=== PATIENT | male | born 1990 | race African-American/Black ===

== ENCOUNTER 2019-09-18 14:45 | Inpatient (IN) | payer OTHER, SELFPAY ==
[2019-09-18 15:22] VITALS: BP 140/64; PULSE 80; RESP 18; TEMP 36.8; O2SAT 98
--- NOTE | 2019-09-18 15:57 | ADMGEN ---
This patient, Donavan Worley, was admitted to Medical Room 347-01. Patient/family oriented to hospital policies and general routines including ID bracelet, bed and alarms, visiting hours, pain management, procedures, bathroom and other care routines, personal items, smoking policy, room service/diet, and visiting hours. Valuables list has been completed. Information on how to activate the Rapid Response Team has been discussed. Patient/Family are encouraged to report perceived risks to care and to ask questions if they do not understand what they are told or what they should do. Patient unable to give answers for admission questions.
--- NOTE | 2019-09-18 17:00 | PM.IMHP ---
H&P: HPI History of Present Illness Chief complaint: Breakthrough seizures. Narrative: Donavan Worley is a 28-year-old male with history of seizures who is being directly admitted to the hospitalist service from the emergency department at [facility] for further treatment and evaluation of recurrent seizures. At the time my evaluation, he is alert but due to underlying intellectual disability, he is not the greatest historian. As such his parents provide much of the following information. Donavan was diagnosed with epilepsy at age 11 and was on Dilantin and Topamax for many years. Sometime in July he began having an increase in the number of seizures, and he was seen in the emergency department at [facility] several times. It sounds as though he was started on valproate sodium and he seemed to be doing well with that drug, however they were unable to get a refill as it was prescribed by an ER physician. Parents attempted to make an appointment with him to see a neurologist, but were unsuccessful. After being off all medication for approximately 1.5 weeks, he once again started having more and more seizures. He was hospitalized at [facility] and was started on Keppra at that time. Mother is concerned that the Keppra is making him ?like a zombie? and he is just not like himself. She is responsible for giving him his medications daily, and states that he has not missed any doses. In any event, he had 2 seizures this morning at home, described as tonic clonic seizures, prompting the trip to the emergency department. He had another witnessed seizure while in the emergency department for which he was given 2 milligrams of Ativan. He was also loaded with 1 gram of Keppra and is being transferred here for consultation with Dr. Cunningham, who is his neurologist. At the time my evaluation he is awake and alert. He has no complaints and specifically denies headache, fever, chills, cold and flu symptoms, chest pain, shortness breath, nausea, vomiting, and body aches. Review of Systems Review of Systems: ROS unobtainable: unobtainable due to mental status (Review of systems is limited due to underlying intellectual disability.) [facility] Past Medical History Medical History (Updated 09/18/19 @ 18:18 by Keshia Gauthier PA-C) Epilepsy Intellectual disability Surgical History Surgical History (Updated 09/18/19 @ 18:14 by Keshia Gauthier PA-C) No history of previous surgery Family History Family History Grandparent Seizures Father Seizures Social History Social History (Updated 09/18/19 @ 18:16 by Keshia Gauthier PA-C) Social History: The patient lives in [place], [place] with his parents. He is on disability. He is usually very active, and likes to go for walks around the neighborhood and collect cans to turn in for money. He is able to ambulate unassisted. He needs reminders to bathe and change clothing, according to mom. His mother, Nathaly Knapp, and father, rafal Worley, are his surrogate decision makers. He is a full code. No alcohol, tobacco, or drug use. Additional smoking assessment comments: Spiritual care concerns: No Agree to blood products: Yes Meds Home Medications and Allergies Home Medications Medication Instructions Recorded Confirmed Type levetiracetam 500 mg PO BID 09/18/19 09/18/19 History Allergies Allergy/AdvReac Type Severity Reaction Status Date / Time No Known Allergies Allergy Verified 09/18/19 17:07 Exam Narrative: Exam Narrative: General: A well-developed, well-nourished male supine in bed in no acute distress. HEENT: Normocephalic, atraumatic. PERRL, EOMI. Sclerae anicteric. He did not open his mouth for exam. Neck: Supple. Respiratory: Lungs are clear to auscultation bilaterally. Cardiovascular: Regular rate and rhythm with S1-S2. Gastrointestinal: Abdomen is sof
[2019-09-18 17:14] VITALS: BMI 26.6
[2019-09-18] MEDS: levETIRAcetam 500 MG TABLET PO (18:45)
[2019-09-18 20:00] VITALS: PULSE 98; RESP 16; O2SAT 98
[2019-09-18 22:00] VITALS: BP 126/80; PULSE 98; RESP 16; TEMP 36.5; O2SAT 98
[2019-09-19 06:00] VITALS: BP 130/64; PULSE 90; RESP 18; TEMP 36.6; O2SAT 98
--- NOTE | 2019-09-19 08:00 | NEURO_ITS ---
TEST: ELECTROENCEPHALOGRAM DIAGNOSIS: SEIZURES PATIENT NUMBER: [id number] EEG NUMBER: [id number] RECORDING DATE: 09/19/19 CONDITION OF RECORDING: Awake and drowsy EEG DESCRIPTION: There are very minimal low voltage 9-11hz posterior dominant rhythms noted. Low voltage beta is seen in the range of 15-21hz during drowsiness mixed with intermittent 3-4hz delta activity. Bilateral symmetrical sleep activity is seen during sleep. Nonparoxysmal. Nonfocal. Nonlateralizing. IMPRESSION: No significant abnormalities noted except excessive amount of theta and delta activity. Clinical correlation recommended. These findings could be suggestive of underlying organic or metabolic encephalopathy or the post ictal state. MTDD
[2019-09-19 08:04] LABS: Basophils Percent Auto 1.1 % (0.2-1.2); Eosinophils Percent Auto 0.8 % (0-4.4); Hematocrit 41.3 % (42.0-52.0); Hemoglobin 13.9 g/dL (14.0-18.0); Immature Granulocyte Absolute 0.03 K/mm3 (0.00-0.031); Immature Granulocyte Percent A 0.8 % (0-0.5); Lymphocytes Absolute Auto 0.93 K/mm3 (0.9-3.2); Lymphocytes Percent Auto 24.9 % (18.3-44.2); Mean Corpuscular HGB Conc 33.7 g/dl (32-36); Mean Corpuscular Volume 95.2 fl (80-100); Mean Platelet Volume 11.1 fl (7.4-10.4); Monocytes Absolute Auto 0.5 K/mm3 (0.1-0.6); Monocytes Percent Auto 13.1 % (2.6-8.5); Neutrophils Absolute Auto 2.2 K/mm3 (1.3-6.7); Neutrophils Percent Auto 59.3 % (45.5-73.1); Platelet Count Result 227 k/mm3 (150-375); Red Blood Count 4.34 M/mm3 (4.6-6.20); Red Cell Distribution Width 12.5 % (11.5-14.5); White Blood Count 3.7 K/mm3 (4.5-10.0)
[2019-09-19 08:21] LABS: Blood Urea Nitrogen 9 mg/dL (9-20); Calcium 8.5 mg/dL (8.4-10.2); Carbon Dioxide 22 mmol/L (22-30); Chloride 104 mmol/L (98-107); Estimated CRCL calculation 106 ml/min; Estimated Glomerular Filt Rate > 60; Glucose 75 mg/dL (75-110); Potassium 3.7 mmol/L (3.4-5.0); Sodium 140 mmol/L (137-145)
[2019-09-19 08:36] VITALS: PULSE 94; RESP 16; O2SAT 98
[2019-09-19] MEDS: levETIRAcetam 500 MG TABLET PO ×2 (08:36→17:03)
--- NOTE | 2019-09-19 12:30 | CONS_ITS ---
DATE OF CONSULTATION: HISTORY OF PRESENT ILLNESS: A 28 years old right-handed male has been admitted to [facility] on direct transfer from the [facility] for the complaints of recurrent seizures. The patient carries a diagnosis of epilepsy since the age of 11 years and had been on Dilantin and Topamax for several years. In July 2019, he began having increased number of the seizures and was seen in the emergency room at [facility] several times and probably it was started on valproate and was doing fairly well; however, they were unable to get a refill as it was prescribed by the emergency room physician. He attempted to make an appointment with the physician subsequently after being off all the medication for 1-1/2 weeks. He once again started having more and more seizure. He was hospitalized at [place] and was started on Keppra, but the Keppra is making him like a zombie and he is just not like himself. She is responsible for giving his medication daily and said he has not missed any dose. In any event, he had 2 seizures this morning at home, which were tonic-clonic seizure prompting trip to the Emergency Department, from there he was transferred here after getting the 2 mg of Ativan. He was loaded with 1 g of Keppra and is being transferred for consultation by the neurologist, and at the time of initial evaluation, he is awake, alert, and cooperative. The patient carries the diagnosis of intellectual disability with epilepsy. No history of previous surgeries. He lives in [place] and usually very active. MEDICATIONS: His present medications include the Keppra 500 mg p.o. b.i.d. ALLERGIES: HE HAS NO HISTORY OF BEING ALLERGIC TO ANY MEDICATION. PHYSICAL EXAMINATION: GENERAL: On examination today, he was awake, alert, cooperative, in no obvious acute distress. HEENT: Head was normocephalic with no cranial bruit. Ear, nose, throat examination was normal. NECK: Supple with no cervical bruit. No thyromegaly. No lymphadenopathy. HEART: Regular with no murmur. LUNGS: Clear to auscultation. ABDOMEN: Soft with no organomegaly. NEUROLOGICAL: He was awake, alert, was able to follow all the verbal commands appropriately. Pupils round and regular. Smith of vision full. Extraocular movements full. Face symmetrical. Tongue midline. Motor examination revealed him to have no drift of 1 side or other side. Tone was normal. Reflexes were symmetrical and 1+. Plantars are downgoing. There was no evidence of sensory or cerebellar deficit. After talking to mother, we called the old record and found that he was taking the Topamax 200 mg daily. In addition, Dilantin 100 mg 3 times a day, but I would like to put him on the drip Briviact, which medicine is not available in the pharmacy, but they will get from the [facility] and that will be the substitute of Keppra. In the meantime, he will stay on the medication as such. MARK HIGHTOWER M.D. [employer] S[employer] MAKER VENEER SAMPLE MAKER D Rupert MT: Cora
[2019-09-19 14:00] VITALS: BP 112/60; PULSE 94; RESP 18; TEMP 36.3; O2SAT 100
[2019-09-19] MEDS: ACETAMINOPHEN 325 MG TABLET 650 MG PO (14:06)
--- NOTE | 2019-09-19 16:13 | PM.IMPN ---
Progress Note: A&P Assessment and Plan (1) Breakthrough seizure: Code(s): G40.919 - Epilepsy, unspecified, intractable, without status epilepticus Status: Acute Assessment and Plan: Patient's mother feels that the patient is not tolerating Keppra very well and has been ?like a zombie? since he started that drug. Dr Cunningham has started him on Briviact, nonformulary and pharmacy has obtained samples from Dr Cunningham's office. Dr Cunningham has noted that he will give the patient samples from his office and will instruct the patient's mother to come to his office tomorrow after the patient has been discharged to get more Briviact samples. Received Briviact this evening and will stop Keppra tomorrow per Dr Cunningham's recommendations. Ativan available as needed for seizures. Initiate seizure precautions. (2) Epilepsy: Code(s): G40.909 - Epilepsy, unspecified, not intractable, without status epilepticus Status: Acute Assessment and Plan: Plan as detailed above. Records requested from recent stay at [facility], including EEG. Subjective Date/time seen: 09/19/19 1400 Interval history: Mr. Worley is a 28yo M with epilepsy and intellectual disability here for increased frequency of seizures. His mother is his main child caregiver and is not in the room at time of my exam. The patient reports feeling well and offers no complaints. He denies headaches, chest pain, shortness of breath, or dizziness. He has tolerated oral intake without nausea or vomiting. His last seizure was the seizure in the ER at outside hospital yesterday. Review of Systems Review of Systems: Narrative: Twelve systems were reviewed with pertinent positives and negatives as per HPI. Exam Narrative: Exam Narrative: General: Male resting supine in bed in no acute distress. HEENT: Normocephalic, EOMI, oral mucosa moist. Cardiovascular: Rate and rhythm are regular. Respiratory: Lungs clear to auscultation all isidro. Abdomen: Soft, non-tender, non-distended, bowel sounds present. Extremities: Peripheral pulses intact. No edema, erythema, or pain to palpation. Neuro: No focal neurological deficits. Upper extremity airline mechanic strength is appropriate and equal bilaterally. Speech is clear. Objective Data Vital Signs Vital Signs: Last Vital Signs Temp 97.4 F L 09/19/19 14:00 Pulse 94 09/19/19 14:00 Resp 18 09/19/19 14:00 BP 112/60 09/19/19 14:00 Pulse Ox 100 09/19/19 14:00 Intake/Output Intake/Output: Intake & Output 09/16/19 09/17/19 09/18/19 09/19/19 23:59 23:59 23:59 23:59 Intake Total 480 580 Output Total 800 Balance -320 580 Meds/Results Medications: Active Medications Generic Name Dose Route Start Last Admin Trade Name Freq PRN Reason Stop Dose Admin Acetaminophen 650 mg 09/19/19 13:50 09/19/19 14:06 Tylenol Tablet PO 650 mg Q4H PRN Administration Pain or Fever Levetiracetam 500 mg 09/18/19 17:00 09/19/19 08:36 Keppra Tablet PO 500 mg BID JOSE Administration Lorazepam 1 mg 09/18/19 17:15 Ativan Inj IV PUSH Q6H PRN Seizure longer than 1 minutes Nonformulary Drug ( 0 mg 09/19/19 13:56 Briviact 25 Mg) PO 10/19/19 13:55 Brivaracetam DAILY [facility] Labs Labs: Laboratory Tests 09/19/19 07:32 09/19/19 07:32 Quality VTE Prophylaxis VTE prophylaxis: mechanical ordered
[2019-09-19 21:29] VITALS: BP 123/70; PULSE 80; RESP 17; TEMP 36.3; O2SAT 98
[2019-09-20] VITALS (9 sets, daily range): BP systolic 124–148; BP diastolic 68–80; PULSE 66–97; RESP 16–18; TEMP 36.3–37.1; O2SAT 98–99
[2019-09-20 06:09] LABS: Hematocrit 42.6 % (42.0-52.0); Hemoglobin 13.8 g/dL (14.0-18.0); Mean Corpuscular HGB Conc 32.4 g/dl (32-36); Mean Corpuscular Hemoglobin 31.8 pg (26-34); Mean Corpuscular Volume 98.2 fl (80-100); Mean Platelet Volume 11.2 fl (7.4-10.4); Platelet Count Result 205 k/mm3 (150-375); Red Blood Count 4.34 M/mm3 (4.6-6.20); Red Cell Distribution Width 12.7 % (11.5-14.5); White Blood Count 4.1 K/mm3 (4.5-10.0)
[2019-09-20 06:27] LABS: Magnesium 1.9 mg/dL (1.6-2.3); Phosphorus 3.1 mg/dL (2.5-4.5)
--- NOTE | 2019-09-20 13:22 | WPDNEUROPN ---
Progress Note: A&P Assessment and Plan (1) Intractable epilepsy: Code(s): G40.919 - Epilepsy, unspecified, intractable, without status epilepticus Status: Acute Additional Plan difficulties with keppra ,switched to briviact,could not handle starting onlamictal Review of Systems Review of Systems: Narrative: having difficulties with meds All systems reviewed & are unremarkable except as noted in HPI and below Exam Const: General: cooperative, healthy appearing, comfortable and no acute distress Nutritional Appearance: well nourished Eyes: General: appearance normal, both eyes and all related structures Alignment and Position: alignment normal Periorbital: periorbital findings normal Eyelids: eyelids normal Conjunctivae: conjunctivae normal Sclera: sclerae normal Cornea: corneas normal Pupils: Equal, round and reactive pupils present EOM: EOMs intact bilaterally Resp: Auscultation: clear to auscultation bilaterally Cardio: Rate: regular rate Rhythm: regular rhythm Skin: General skin exam: no rashes or lesions noted Neuro: General: oriented to person, tone normal, moves all extremities, no focal motor deficits and CN's II-XI intact bilaterally Cranial nerves: Yes Equal, round and reactive pupils present, Yes Bilaterally intact EOM present, Yes Nystagmus not present, Yes Normal facial strength present, Yes facial symmetry, Yes Midline tongue present, Yes Normal gag reflex present, Yes Symmetric palate elevation present and Yes Ability to bilaterally rotate head present Gait exam (Neuro): Normal gait present Deep tendon reflexes (DTR's): Right triceps reflex intensity grade: 1+, Left triceps reflex intensity grade: 1+, Rt Biceps (C5, C6): 1+, Left biceps reflex intensity grade: 1+, Right brachioradialis reflex intensity grade: 1+, Left brachioradialis reflex intensity grade: 1+, Right patellar reflex intensity grade: 1+, Left patellar reflex intensity grade: 1+, Right ankle reflex intensity grade: 1+ and Left ankle reflex intensity grade: 1+ Plantar Reflex Responses: downgoing: bilateral Psych: Appearance: grossly normal Objective Data Vital Signs Vital Signs: Vital Signs - 24 hr 09/19/19 14:00 09/19/19 21:29 09/20/19 00:00 Temperature 36.3 C L 36.3 C L Pulse Rate 94 80 89 Respiratory Rate 18 17 Blood Pressure 112/60 123/70 Pulse Oximetry 100 98 09/20/19 04:00 09/20/19 06:00 Temperature 36.3 C L Pulse Rate 97 81 Respiratory Rate 16 Blood Pressure 148/80 H Pulse Oximetry 99 Intake/Output Intake/Output: Intake & Output 09/17/19 09/18/19 09/19/19 09/20/19 23:59 23:59 23:59 23:59 Intake Total 480 1300 930 Output Total 800 Balance -320 1300 930 Meds/Results Medications: Active Medications Generic Name Dose Route Start Last Admin Trade Name Freq PRN Reason Stop Dose Admin Acetaminophen 650 mg 09/19/19 13:50 09/19/19 14:06 Tylenol Tablet PO 650 mg Q4H PRN Administration Pain or Fever Lamotrigine 100 mg 09/20/19 21:00 Lamictal PO Q12HR JOSE Lorazepam 1 mg 09/18/19 17:15 Ativan Inj IV PUSH Q6H PRN Seizure longer than 1 minutes Labs Labs: Laboratory Results - last 24 hr 09/20/19 09/20/19 05:14 05:14 WBC 4.1 L RBC 4.34 L Hgb 13.8 L Hct 42.6 MCV 98.2 MCH 31.8 MCHC 32.4 RDW 12.7 Plt Count 205 MPV 11.2 H Phosphorus 3.1 Magnesium 1.9 Quality VTE Prophylaxis VTE prophylaxis: mechanical ordered
--- NOTE | 2019-09-20 16:04 | PM.IMPN ---
Progress Note: A&P Assessment and Plan (1) Breakthrough seizure: Code(s): G40.919 - Epilepsy, unspecified, intractable, without status epilepticus Status: Acute Assessment and Plan: Patient's mother feels that the patient is not tolerating Keppra very well and has been ?like a zombie? since he started that drug weeks ago. Dr Cunningham has changed him to Briviact, but after discussion with the patient's mother she feels that he is even more lethargic on the Briviact compared to Keppra. Discussed that these medications are in the same class. Discussed case with Dr Cunningham who recommends stopping Briviact and starting Lamictal today. Monitor overnight for response and he will see the patient tomorrow. Ativan available as needed for seizures. Seizure precautions. (2) Epilepsy: Code(s): G40.909 - Epilepsy, unspecified, not intractable, without status epilepticus Status: Acute Assessment and Plan: Plan as detailed above. Records requested from recent stay at [facility], including EEG. Subjective Date/time seen: 09/20/19 1145 Interval history: Mr. Worley is a 28yo M with epilepsy and intellectual disability here for increased frequency of seizures. His mother is his main dermatopathologist. She describes to me today that the patient is not acting him self, staring off into space and barely speaking, which is much different than his baseline. She feels that the new medication is making him even more zombie-like than the Keppra. Review of systems is limited based on his condition however he offers no complaints. He has had no seizures here. Review of Systems Review of Systems: Narrative: Twelve systems were reviewed with pertinent positives and negatives as per HPI. Exam Narrative: Exam Narrative: General: Male resting supine in bed in no acute distress. HEENT: Normocephalic, EOMI, oral mucosa moist. Cardiovascular: Rate and rhythm are regular. Respiratory: Lungs clear to auscultation all isidro. Abdomen: Soft, non-tender, non-distended, bowel sounds present. Extremities: Peripheral pulses intact. No edema, erythema, or pain to palpation. Neuro: No focal neurological deficits. Upper extremity burn table operator strength is appropriate and equal bilaterally. Speech is clear. Able to follow simple commands but is sleepy. Psych: Mood and affect are flat. Objective Data Vital Signs Vital Signs: Last Vital Signs Temp 98.8 F 09/20/19 14:00 Pulse 78 09/20/19 14:00 Resp 16 09/20/19 14:00 BP 136/68 09/20/19 14:00 Pulse Ox 98 09/20/19 14:00 Intake/Output Intake/Output: Intake & Output 09/17/19 09/18/19 09/19/19 09/20/19 23:59 23:59 23:59 23:59 Intake Total 480 1300 1410 Output Total 800 Balance -320 1300 1410 Meds/Results Medications: Active Medications Generic Name Dose Route Start Last Admin Trade Name Freq PRN Reason Stop Dose Admin Acetaminophen 650 mg 09/19/19 13:50 09/19/19 14:06 Tylenol Tablet PO 650 mg Q4H PRN Administration Pain or Fever Lamotrigine 100 mg 09/20/19 21:00 Lamictal PO Q12HR JOSE Lorazepam 1 mg 09/18/19 17:15 Ativan Inj IV PUSH Q6H PRN Seizure longer than 1 minutes Labs Labs: Laboratory Tests 09/20/19 05:14 09/19/19 07:32 Quality VTE Prophylaxis VTE prophylaxis: mechanical ordered
[2019-09-20] MEDS: lamoTRIgine 100 MG TABLET PO (20:47)
[2019-09-21] VITALS: PULSE 74
[2019-09-21] MEDS: ACETAMINOPHEN 325 MG TABLET 650 MG PO (02:01)
[2019-09-21 04:00] VITALS: PULSE 61
[2019-09-21 05:50] VITALS: BP 117/74; PULSE 64; RESP 18; TEMP 36.4; O2SAT 99
[2019-09-21 06:04] LABS: Basophils Percent Auto 0.8 % (0.2-1.2); Eosinophils Absolute Auto 0.1 K/mm3 (0-0.3); Eosinophils Percent Auto 2.6 % (0-4.4); Hematocrit 42.8 % (42.0-52.0); Hemoglobin 14.3 g/dL (14.0-18.0); Immature Granulocyte Absolute 0.08 K/mm3 (0.00-0.031); Immature Granulocyte Percent A 2.1 % (0-0.5); Lymphocytes Absolute Auto 0.97 K/mm3 (0.9-3.2); Lymphocytes Percent Auto 24.9 % (18.3-44.2); Mean Corpuscular HGB Conc 33.4 g/dl (32-36); Mean Corpuscular Volume 95.7 fl (80-100); Mean Platelet Volume 10.5 fl (7.4-10.4); Monocytes Absolute Auto 0.9 K/mm3 (0.1-0.6); Monocytes Percent Auto 23.4 % (2.6-8.5); Neutrophils Absolute Auto 1.8 K/mm3 (1.3-6.7); Neutrophils Percent Auto 46.2 % (45.5-73.1); Platelet Count Result 253 k/mm3 (150-375); Red Blood Count 4.47 M/mm3 (4.6-6.20); Red Cell Distribution Width 12.6 % (11.5-14.5); White Blood Count 3.9 K/mm3 (4.5-10.0)
[2019-09-21 08:00] VITALS: PULSE 56
[2019-09-21] MEDS: lamoTRIgine 100 MG TABLET PO (08:20)
--- NOTE | 2019-09-21 11:31 | PM.DS ---
DS: Diagnosis Admitting Diagnosis Admitting Diagnosis: Epilepsy, unspecified, intractable, without status epilepticus Discharge Diagnosis (1) Breakthrough seizure: Code(s): G40.919 - Epilepsy, unspecified, intractable, without status epilepticus Status: Acute Assessment and Plan: Date of Service 09/21/19 Mr. Worley is a 28yo M with epilepsy and intellectual disability who presented to [facility] ED with his mother due to increased seizure activity. He was transferred to [facility] from [facility] for neurology consult with Dr Cunningham, who he had followed with in the past. Donavan had been on topamax and dilantin for may years. Around 2 months ago, he began to have an increase in the number of seizures and presented to [facility] ED multiple times and had recently stayed at [facility]. He was started on Keppra at that time and his mother noted that he has not been acting himself since being on the Keppra, acting like a zombie . His mother is responsible for administering his medications and reports he did not miss any doses of Keppra. In the days prior to arrival, Donavan was having at least 2 seizures per day according to his mother. On the day of arrival, he had 2 seizures and then a 3rd seizure while in the ER at [facility], at which time 2mg of Ativan was given. Dr Cunningham switched him from Keppra to Briviact during this stay. After starting the Briviact, patient's mother reported he was even more lethargic than before and was not interested in him continuing on this drug. He was then switched to lamotrigine which he seemed to tolerate well and his mother noted he was a bit more interactive. He did not have any seizures while at [facility]. He was hemodynamically stable for discharge 09/21/19 with instructions to follow up with Dr Cunningham in 6 weeks. (2) Epilepsy: Code(s): G40.909 - Epilepsy, unspecified, not intractable, without status epilepticus Status: Acute Assessment and Plan: Plan as detailed above. DS: Summary Time Spent with Patient Time attestation: Total time spent providing and/or coordinating discharge services: 35 minutes. Exam Narrative: Exam Narrative: General: Male resting supine in bed in no acute distress. HEENT: Normocephalic, EOMI, oral mucosa moist. Cardiovascular: Rate and rhythm are regular. Respiratory: Lungs clear to auscultation all isidro. Abdomen: Soft, non-tender, non-distended, bowel sounds present. Extremities: Peripheral pulses intact. No edema, erythema, or pain to palpation. Neuro: No focal neurological deficits. Upper extremity airfreight operations agent strength is appropriate and equal bilaterally. Speech is clear. Able to follow simple commands. Psych: Mood and affect are flat. DS: Data Data Completed and Pending Labs on day of discharge: Labs from last 24 hours 09/21/19 05:39 WBC 3.9 L RBC 4.47 L Hgb 14.3 Hct 42.8 MCV 95.7 MCH 32.0 MCHC 33.4 RDW 12.6 Plt Count 253 MPV 10.5 H Immature Gran % (Auto) 2.1 H Neut % (Auto) 46.2 Lymph % (Auto) 24.9 Dolores % (Auto) 23.4 H Eos % (Auto) 2.6 Baso % (Auto) 0.8 Lymph # (Auto) 0.97 Dolores # (Auto) 0.9 H Eos # (Auto) 0.1 Baso # (Auto) 0.0 Abs Immat Gran (auto) 0.08 H Absolute Neuts (auto) 1.8 Absolute Nucleated RBC 0.0 Nucleated RBC % 0.0 Discharge Plan Discharge Attending physician on discharge: Sofya Amin Consulting providers: Asael Cunningham Discharging Clinician: Donna Wynn Anticipated Discharge Date/Time: 09/21/19 14:00 Patient Disposition: Home, Self-Care Activity: as tolerated Diet: as tolerated Discharge Instructions: Call to make a follow up appointment with Dr Cunningham for [address] Cunningham's office number is [phone]. Call his office for any questions or concerns regarding [place]'s seizure medications, and for refills on the lamotrigine. Return to ER for
== END 2019-09-21 12:07 | disposition home or self-care (01) | DRG 53 ==
PROVIDERS: Physician Assistant; Admitting Provider Internal Medicine; Visit Provider Family Medicine
DX: G40.919 Epilepsy, unspecified, intractable, without status epilepticus (principal); F79 Unspecified intellectual disabilities; Z23 Encounter for immunization
CPT/HCPCS: 36415; 80048; 83735; 84100; 85025; 85027; 95816; A9270; G0378; G0379

== ENCOUNTER 2019-10-15 21:50 | Observation (INO) | payer OTHER, SELFPAY ==
[2019-10-15 21:50] VITALS: BP 102/59; PULSE 63; RESP 18; TEMP 36.8; O2SAT 98
--- NOTE | 2019-10-15 22:05 | ADMGEN ---
This patient, Donavan Worley, was admitted to [facility] Surg Room 305-01. Patient/family oriented to hospital policies and general routines including ID bracelet, bed and alarms, visiting hours, pain management, procedures, bathroom and other care routines, personal items, smoking policy, room service/diet, and visiting hours. Valuables list has been completed. Information on how to activate the Rapid Response Team has been discussed. Patient/Family are encouraged to report perceived risks to care and to ask questions if they do not understand what they are told or what they should do.
[2019-10-15 22:39] VITALS: PULSE 74
[2019-10-16] VITALS (9 sets, daily range): BP systolic 116–146; BP diastolic 64–85; PULSE 70–102; RESP 18–20; TEMP 35.8–36.8; O2SAT 97–100
--- NOTE | 2019-10-16 02:35 | PM.IMHP ---
H&P: HPI History of Present Illness Chief complaint: Breakthrough seizure Narrative: Date and time of patient contact: 10/16/2019 at 2:30 a.m. Donavan Worley is a 29 year old male with a past medical history of intellectual disability and seizure disorder who was transferred from [facility] for further treatment of recurrent seizures. Per report from outside facility the patient had 7 tonic colonic seizures prior to arrival at the outside ER. The patient had a witnessed seizure while at [facility] and received 2 mg of Ativan. The patient was unable to provide much history as he has an intellectual disability and is only oriented to person. Subsequently most of the information is obtained from past medical records and transfer records. The patient was diagnosed with epilepsy at age 11 and was on Topamax and Dilantin for many years. In July he began having increased number of seizures and was seen in the emergency room at [facility]. He was started on valproate but was unable to get it refilled as it was prescribed by ER physician. His parents had difficulty setting up an appointment with a neurologist and he was off his meds for 1.5 weeks. He started having more seizures and was hospitalized at [place] and started on Keppra. His mother felt that Keppra was making him too sedated and like a zombie. Uneven long cap for the patient started having breakthrough seizures and was hospitalized at our facility 09/18/2019. He was subsequently switched to Briviact during that hospital stay. The patient was even more lethargic than when he was on Keppra and the medication was discontinued. He was then started on lamotrigine and he did not have any further seizures while in the hospital. He was discharged on 09/21/2019 with a planned follow-up in [address] Asael Cunningham. Evidently the patient had more breakthrough seizures and presented to [facility] prior to that appointment. While it [facility] the patient received 1 gram of Keppra and 2 mg of Ativan x1. Patient remains lethargic. He will intermittently wake up and try to get out of bed. While at the outside facility the patient pulled all of his IVs out. He received additional Ativan and his IVs were replaced. Although the patient does try to get out of bed our facility he has not been agitated and has not disrupted his lines. He has not had any further seizures. The patient has been admitted as observation for medication adjustments and evaluation by Neurology. Review of Systems Review of Systems: Narrative: Limited due to the patient's intellectual disability. [facility] Past Medical History Medical History Epilepsy Intellectual disability Surgical History Surgical History No history of previous surgery Family History Family History Grandparent Seizures Father Seizures Social History Social History (Updated 10/16/19 @ 02:21 by Netta Zuniga DO) Social History: The patient lives in [place], [place] with his parents. He is on disability. He is usually very active, and likes to go for walks around the neighborhood and collect cans to turn in for money. He is able to ambulate unassisted. He needs reminders to bathe and change clothing, according to mom. His mother, Nathaly Knapp, and father, rafal Worley, are his surrogate decision makers. He is a full code. No alcohol, tobacco, or drug use. Smoking status: Never smoker Additional smoking assessment comments: Alcohol intake: never Substance use: never Living arrangements: with family Additional occupation/education comments: Disabled Spiritual care concerns: No Agree to blood products: Yes Meds Home Medications and Allergies Home Medications Medication Instructions Recorded Confirmed Type la
[2019-10-16] MEDS: lamoTRIgine 100 MG TABLET PO ×2 (09:49→19:08)
--- NOTE | 2019-10-16 11:33 | CONS_ITS ---
DATE OF CONSULTATION: 10/15/2019 HISTORY OF PRESENT ILLNESS: This 29-year-old has been admitted to [facility] through the emergency room, has been admitted to [facility] on transfer from the [facility] for the complaints of recurrent seizures. The patient reportedly had 7 tonic-clonic seizure prior to arrival to the outside emergency room and one seizure while he was at the [facility], where he received 2 mg of Ativan. He was unable to provide any history further. He carries a diagnosis of intellectual disability and is only oriented to person. The further information obtained in the past medical records and transfer records. He was diagnosed with epilepsy at the age of 11 and was treated with Topamax and Dilantin for several years. In July, he began having increased number of seizure and was seen in the ER at [place], and was started on valproate, but was unable to get a refill, as it was prescribed by the ER physician. His parents had difficulty setting him with an appointment with a neurologist. He was off his medication for hwm-lmi-[id number]-half week. He started having seizure, was hospitalized at [place] and started on Keppra. His mother felt that Keppra was making him too sedated like a zombie Patient started having breakthrough seizure and was hospitalized at our facility on September 18, 2019, and was switched over to brivict during that hospital, but the patient was even more lethargic than when he was on Keppra, and the medication was discontinued. He was just started on lamotrigine and did not have any further seizures while in the hospital. He was discharged on 09/21/2019 and plan follow up in 6 weeks, Dr. Cunningham. Eventually, the patient had more breakthrough seizure presented to [place] prior to that appointment. While in the [place], the patient received 1 g of Keppra and 2 mg of Ativan and remained lethargic. He was intermittent to wake up and tried to get out of bed. While at the house surfaces, the patient pulled all of his IVs. He received additional Ativan. His IVs were replaced. Although the patient does try to get out of bed in our facility. He has not been agitated and has not been disruptive at all. The patient carries a diagnosis of intellectual disability with epilepsy, has had no previous surgeries except he carries a diagnosis of seizure with his father and grandfather also. He lives in [place], [place], usually very active, and likes to go for walks around the neighborhood and collectcans for money. He is able to ambulate unassisted. He is reminded to bathe and change clothing. According to mom, he does not drink. Does not smoke. MEDICATIONS: His home medications included Lamictal 100 mg b.i.d. for the last 30 days. ALLERGIES: NO KNOWN DRUG ALLERGIES. PHYSICAL EXAMINATION: GENERAL: Revealed him to be awake, alert, cooperative, in no obvious acute distress. HEENT: Head normocephalic with no cranial bruit. Ear, nose, throat examination normal. NECK: Supple with no cervical bruit. No thyromegaly. No lymphadenopathy. HEART: Regular. LUNGS: Clear. ABDOMEN: Soft. NEUROLOGICAL: He is awake, alert, relates to the physician by good eye contact. Follows instructions like to look to the right, look to the left. Pupils round, regular. Smith of vision reliable, 2 finger confrontation. He moves upper and lower extremities. Reflexes are symmetrical and plantars downgoing. LABORATORY DATA: Evaluation up until now revealed him to have WBC of 9600 with hemoglobin of 14.2, sodium 142, potassium 4.1, chloride 105, CO2 11, glucose 104, BUN 22, creatinine 1.26. AST, ALT, alkaline phos all within normal limits and total protein high at 8.6, albumin normal at 4.7, calcium 9.3, magnesium of 2.3. With the admissio
--- NOTE | 2019-10-16 12:38 | PM.IMPN ---
Progress Note: A&P Assessment and Plan (1) Intractable epilepsy: Code(s): G40.919 - Epilepsy, unspecified, intractable, without status epilepticus Status: Chronic (2) Epilepsy: Code(s): G40.909 - Epilepsy, unspecified, not intractable, without status epilepticus Status: Chronic (3) Breakthrough seizure: Code(s): G40.919 - Epilepsy, unspecified, intractable, without status epilepticus Status: Acute Assessment and Plan: Patient received 1 gram of Keppra at the outside ER. Pt restarted on lamtical, watch for 24 hours hopeful discharge richard, after observation for 24 hours. Pt has tried several antiseizure medications which causes him problems. Subjective Date/time seen: 10/16/19 12:38 Interval history: Meir is a 28yo M with epilepsy and intellectual disability. [place] had been on topamax and dilantin. Pt gets zombied on these medications pt started on lamtical here. Continue to watch, hopeful discharge tomorrow, once seizure free for 24 hours. No other complaints. Pt tried Briviact last visit but it made him lethargic. Pt known to neurology service. Medications adjusted by their team. Review of Systems Review of Systems: All systems reviewed & are unremarkable except as noted in HPI and below Constitutional: Constitutional: Reports no additional constitutional complaints and Reports fatigue Comments: Learning disability Neurologic: Reports seizure-like activity Exam Narrative: Exam Narrative: General: No acute distress, well-developed well-nourished HEENT: Normocephalic Neck: No JVD, lymphadenopathy or significant thyromegaly Respiratory: Clear to auscultation bilaterally, no increased work of breathing Cardiovascular: Normal S1-S2, regular rate and rhythm Gastrointestinal: Soft nontender, nondistended, positive bowel sounds Skin: No jaundice, no pallor Extremities: No clubbing, cyanosis or edema, moves all extremities equally Neurological: Arouses to verbal stimuli, alert and oriented to self, slow responses Psychiatric: Pleasant and cooperative Objective Data Vital Signs Vital Signs: Vital Signs - 24 hr 10/15/19 21:50 10/15/19 22:39 10/16/19 00:00 Temperature 36.8 C Pulse Rate 63 74 85 Respiratory Rate 18 Blood Pressure 102/59 L Pulse Oximetry 98 10/16/19 04:00 10/16/19 06:00 Temperature 36.8 C Pulse Rate 74 81 Respiratory Rate 18 Blood Pressure 146/85 H Pulse Oximetry 100 Intake/Output Intake/Output: Intake & Output 10/13/19 10/14/19 10/15/19 10/16/19 23:59 23:59 23:59 23:59 Intake Total 240 Balance 240 Meds/Results Medications: Active Medications Generic Name Dose Route Start Last Admin Trade Name Freq PRN Reason Stop Dose Admin Acetaminophen 650 mg 10/15/19 22:17 Tylenol Tablet PO Q4H PRN Mild Pain (1-3) or Fever Lamotrigine 100 mg 10/16/19 09:00 10/16/19 09:49 Lamictal PO 100 mg BID JOSE Administration Lorazepam 1 mg 10/15/19 22:17 Ativan Inj IV PUSH Q6H PRN seizure greater than 2min
[2019-10-17] VITALS: PULSE 79
[2019-10-17 04:00] VITALS: PULSE 71
[2019-10-17 06:00] VITALS: BP 123/85; PULSE 74; RESP 18; TEMP 36.6; O2SAT 98
[2019-10-17 08:00] VITALS: PULSE 75
[2019-10-17] MEDS: lamoTRIgine 100 MG TABLET 200 MG PO (09:24)
--- NOTE | 2019-10-17 10:06 | WPDNEUROPN ---
Progress Note: A&P Assessment and Plan (1) Intractable epilepsy: Code(s): G40.919 - Epilepsy, unspecified, intractable, without status epilepticus Status: Chronic (2) Epilepsy: Code(s): G40.909 - Epilepsy, unspecified, not intractable, without status epilepticus Status: Chronic (3) Breakthrough seizure: Code(s): G40.919 - Epilepsy, unspecified, intractable, without status epilepticus Status: Acute Additional Plan stable on this therapy,discussed with sister and informed no change in meds ,will increase lamictal Review of Systems Review of Systems: All systems reviewed & are unremarkable except as noted in HPI and below Exam Const: General: cooperative, healthy appearing, comfortable, no acute distress and well developed Nutritional Appearance: average body habitus HENMT: Head: No palpable skull fracture present and normocephalic Ears: hearing grossly normal bilaterally General nose exam: Normal external nose present Face and sinus: normal facial exam Mouth: Yes Normal oral and palatal mucosa present Eyes: General: appearance normal, both eyes and all related structures Alignment and Position: alignment normal Eyelids: eyelids normal Conjunctivae: conjunctivae normal Sclera: sclerae normal Cornea: corneas normal Pupils: Equal, round and reactive pupils present EOM: EOMs intact bilaterally Neck: Neck: full ROM Resp: Effort & Inspection: normal respiratory effort and able to speak in complete sentences Auscultation: clear to auscultation bilaterally Cardio: Rate: regular rate Rhythm: regular rhythm Skin: General skin exam: no rashes or lesions noted Neuro: General: tone normal, moves all extremities and no focal motor deficits Cranial nerves: Yes CN's II-XII intact bilaterally Speech: normal speech Gait exam (Neuro): Normal gait present Sensory Exam: normal sensation Deep tendon reflexes (DTR's): Right triceps reflex intensity grade: 1+, Left triceps reflex intensity grade: 1+, Rt Biceps (C5, C6): 1+, Left biceps reflex intensity grade: 1+, Right brachioradialis reflex intensity grade: 1+, Left brachioradialis reflex intensity grade: 1+, Right patellar reflex intensity grade: 1+, Left patellar reflex intensity grade: 1+, Right ankle reflex intensity grade: 1+ and Left ankle reflex intensity grade: 1+ Plantar Reflex Responses: downgoing: bilateral Coordination: [id number] test normal Psych: Affect: normal affect Attitude: cooperative Objective Data Vital Signs Vital Signs: Vital Signs - 24 hr 10/16/19 12:00 10/16/19 14:00 10/16/19 16:00 Temperature 35.8 C L Pulse Rate 96 76 91 Respiratory Rate 20 Blood Pressure 116/67 Pulse Oximetry 98 10/16/19 20:00 10/16/19 22:00 10/17/19 00:00 Temperature 36.6 C Pulse Rate 102 H 70 79 Respiratory Rate 18 Blood Pressure 129/64 Pulse Oximetry 97 10/17/19 04:00 10/17/19 06:00 Temperature 36.6 C Pulse Rate 71 74 Respiratory Rate 18 Blood Pressure 123/85 Pulse Oximetry 98 Intake/Output Intake/Output: Intake & Output 10/14/19 10/15/19 10/16/19 10/17/19 23:59 23:59 23:59 23:59 Intake Total 1410 440 Balance 1410 440 Meds/Results Medications: Active Medications Generic Name Dose Route Start Last Admin Trade Name Freq PRN Reason Stop Dose Admin Acetaminophen 650 mg 10/15/19 22:17 Tylenol Tablet PO Q4H PRN Mild Pain (1-3) or Fever Lamotrigine 200 mg 10/17/19 09:00 10/17/19 09:24 Lamictal PO 200 mg Q12HR JOSE Administration Lorazepam 1 mg 10/15/19 22:17 Ativan Inj IV PUSH Q6H PRN seizure greater than 2min
[2019-10-17 12:00] VITALS: PULSE 99
--- NOTE | 2019-10-17 12:36 | P.DS_ITS ---
DS: Diagnosis Admitting Diagnosis Admitting Diagnosis: Epilepsy, unspecified, intractable, without status epilepti cus Discharge Diagnosis (1) Intractable epilepsy: Code(s): G40.919 - Epilepsy, unspecified, intractable, without status epilepticus Status: Chronic (2) Epilepsy: Code(s): G40.909 - Epilepsy, unspecified, not intractable, without status epilepticus Status: Chronic (3) Breakthrough seizure: Code(s): G40.919 - Epilepsy, unspecified, intractable, without status epilepticus Status: Acute Assessment and Plan: Patient received 1 gram of Keppra at the outside ER. Pt restarted on lamtical, watch for 24 hours hopeful discharge [facility], after observation for 24 hours. Pt has tried several antiseizure medications which causes him problems with confusion and lethargy. Dr Wright, neurology to follow in his clinic. DS: Summary Time Spent with Patient Time attestation: Total time spent providing and/or coordinating discharge services:38 minutes on day of discharge Exam Narrative: Exam Narrative: General: No acute distress, well-developed well- nourished HEENT: Normocephalic Neck: No JVD, lymphadenopathy or significant thyromegaly Respiratory: Clear to auscultation bilaterally, no increased work of breathing Cardiovascular: Normal S1-S2, regular rate and rhythm Gastrointestinal: Soft nontender, nondistended, positive bowel sounds Skin: No jaundice, no pallor Extremities: No clubbing, cyanosis or edema, moves all extremities equally Neurological: Oriented x3, more awake. Psychiatric: Pleasant and cooperative Discharge Plan Discharge Attending physician on discharge: Sofya Amin Consulting providers: Asael Cunningham Discharging Clinician: Sofya Amin Anticipated Discharge Date/Time: 10/17/19 12:35 Patient Disposition: Home, Self-Care Activity: as tolerated Diet: regular Patient Instructions: Antibiotic Form, Pain Management (DC), Epilepsy (DC) Stand Alone Forms: General Discharge Information Follow-up/Referrals: Asael Cunningham MD [Primary Care Provider] - Discharge Medications: New lamotrigine [Lamictal] 100 mg Tablet 200 mg PO Q12HR Qty: 60 RF: 0 Discontinued lamotrigine 100 mg tablet 100 mg PO BID 30 Days Qty: 60 RF: 0 Date of admission: 10/15/19 21:50 Primary Care Provider: Asael Cunningham Admitting Provider: Netta Zuniga Attending physician on admission: Netta Zuniga
[2019-10-17 14:00] VITALS: BP 105/63; PULSE 92; RESP 18; TEMP 36.6; O2SAT 98
== END 2019-10-17 17:10 | disposition home or self-care (01) ==
PROVIDERS: Admitting Provider Internal Medicine; PCP Psychiatry & Neurology Neurology; Visit Provider Family Medicine
DX: G40.919 Epilepsy, unspecified, intractable, without status epilepticus (principal); F79 Unspecified intellectual disabilities; Z79.899 Other long term (current) drug therapy
CPT/HCPCS: 87081; A9270; G0378; G0379